=== PATIENT | male | born 1965 | race Caucasian/White ===

== ENCOUNTER 2016-09-12 07:08 | Day surgery (SDC) | payer OTHER ==
[2016-09-11 08:29] VITALS: BMI 38.4
--- NOTE | 2016-09-12 01:48 | P.GSHP ---
History of Present Illness H&P Date: 09/12/16 CHIEF COMPLAINT: Colon screen HISTORY OF PRESENT ILLNESS: The patient is a 51-year-old female who presents for colon screen. Lower endoscopy was offered for further evaluation and management. PAST MEDICAL HISTORY: Please see list. PAST SURGICAL HISTORY: Please see list. MEDICATIONS: Please see list. ALLERGIES: Please see list. SOCIAL HISTORY: No illicit drug use FAMILY HISTORY: No reports of Crohn disease or ulcerative colitis. REVIEW OF ORGAN SYSTEMS: CONSTITUTIONAL: No reports of fevers or chills. PHYSICAL EXAM: VITAL SIGNS: Stable GENERAL: Well-developed pleasant in no acute distress. HEENT: No scleral icterus. Extraocular movements grossly intact. Moist buccal mucosa. NECK: Supple without lymphadenopathy. CHEST: Unlabored respirations. Equal bilateral excursions. CARDIOVASCULAR: Regular rate and rhythm. Distal 2+ pulses. ABDOMEN: Soft, nontender, nondistended. MUSCULOSKELETAL: No clubbing, cyanosis, or edema. ASSESSMENT: 1. Colon screen. PLAN: 1. Recommend proceeding with a lower endoscopy Past Medical History Past Medical History: Diabetes Mellitus, GERD/Reflux, Hyperlipidemia, Sleep Apnea/CPAP/BIPAP Additional Past Medical History / Comment(s): hx migraines, discoloration lower legs, History of Any Multi-Drug Resistant Organisms: None Reported Past Surgical History: Adenoidectomy, Appendectomy, Ear Surgery, Orthopedic Surgery Additional Past Surgical History / Comment(s): tubes in ears, plastic surgery on nose, chad knee arthroscopy, Past Anesthesia/Blood Transfusion Reactions: Postoperative Nausea & Vomiting ( PONV) Past Psychological History: No Psychological Hx Reported Smoking Status: Current every day smoker Past Alcohol Use History: Rare Additional Past Alcohol Use History / Comment(s): has smoked since age 10, quit cigarretes 2012-up to 2 PPD, now uses pipe- 5-6 x day Past Drug Use History: Marijuana - Past Family History Mother Family Medical History: Cancer Medications and Allergies Home Medications Medication Instructions Recorded Confirmed Type Glimepiride [Amaryl] 2 mg PO QAM 03/09/14 09/11/16 History HYDROcodone/APAP 10-325MG [[place] 1 each PO Q6H PRN 03/09/14 09/11/16 History 10] Ranitidine HCl [Zantac] 150 mg PO DAILY 03/09/14 09/11/16 History Simvastatin [Zocor] 40 mg PO HS 10/07/14 04/11/17 History metFORMIN HCL [Glucophage] 1,000 mg PO BID 03/09/14 09/11/16 History Melatonin 3 mg PO HS 09/11/16 09/11/16 History Allergies Allergy/AdvReac Type Severity Reaction Status Date / Time No Known Allergies Allergy Verified 09/11/16 08:19
[~2016-09-12 07:08] MED LIST: LACTATED RINGERS 1,000 ML IV SCH; LIDOCAINE 1% 20 ML VIAL (10MG/ML) FOR IV START INTRADERMA PRN
[2016-09-12] MEDS ORDERED: LACTATED RINGERS 1,000 ML IV ONE (07:18)
[2016-09-12 07:29] VITALS: RESP 18; TEMP 98
[2016-09-12 07:31] LABS: Glucose,Whole Blood 201 mg/dL (75-99)
[2016-09-12] MEDS ORDERED: LIDOCAINE 1% INJ 10MG/ML (20 ML MDV) ONE (07:37)
[2016-09-12] MEDS ORDERED: ONDANSETRON 4 MG/2 ML VIAL ONE (07:37)
[2016-09-12] MEDS ORDERED: PROPOFOL 10 MG/ML 20 ML VIAL IV ONE (07:37)
[2016-09-12 08:45] LABS: Glucose,Whole Blood 223 mg/dL (75-99)
[2016-09-12 08:47] VITALS: BP 122/67; PULSE 60
--- NOTE | 2016-09-12 08:53 | P.PCN ---
Date of Procedure: 09/12/16 Description of Procedure: PREOPERATIVE DIAGNOSIS: Colonoscopy screening. Personal history of colon polyps. POSTOPERATIVE DIAGNOSIS: Colonoscopy screening. Personal history of colon polyps. Multiple tubular adenomas throughout the colon. External hemorrhoids, grade 2. OPERATION: Colonoscopy to the ileocecal valve and appendiceal orifice. Colonoscopy with multiple snare biopsies. Colonoscopy with multiple cold forceps biopsies. SURGEON: Thelma Carson MD. ANESTHESIA: MAC. INDICATIONS: The patient is a 57-year-old female who presents for colonoscopy screening. Benefits and risks were described and informed consent was obtained. DESCRIPTION OF PROCEDURE: The patient had undergone Gatorade, MiraLAX and Dulcolax prep. He had been brought into the operating room and laid in the left lateral decubitus position. After adequate intravenous sedation, the rectum was examined with 2% lidocaine jelly. External hemorrhoids were encountered. The rectal tone was within normal limits. No lesions were palpated in the rectal vault. An Olympus colonoscope was advanced until the ileocecal valve and appendiceal orifice were clearly viewed. The prep was fair with visualization of the mucosal folds. The scope was removed with visualization of each mucosal fold. No scattered diverticulosis was encountered. Multiple colonic polyps were found and cold forcep biopsy or snare polypectomy. No evidence of focal colitis was found. Retroflexion of the scope demonstrated grade 1 internal hemorrhoids without active bleeding or inflammation. The colon was desufflated. The patient had tolerated the procedure well. Withdrawal time was over 6 minutes. FINDINGS: Internal hemorrhoids, grade 1 External hemorrhoids, grade 2. No arteriovenous malformations. Removal of 11 polyps from the proximal, mid transverse colon and descending colon: - Snare polypectomy 20 cm from the anal verge, 5 mm tubulovillous adenoma polyp. - Snare polypectomy 39 cm from the anal verge, 8 mm flat villous adenoma polyp. - Snare polypectomy 50 cm from the anal verge, 12 mm flat villous adenoma polyp. - Cold forceps biopsy at 30 cm from the anal verge, 4 mm polyp. - Cold forceps biopsy at 40 cm from the anal verge, 5 mm polyp. - Cold forceps biopsy at 45 cm from the anal verge, 4 mm polyp. - Cold forceps biopsy at 55 cm from the anal verge, 3 mm polyp. - Cold forceps biopsy at 60 cm from the anal verge, 4 mm polyp. - Cold forceps biopsy at 65 cm from the anal verge, 3 mm polyp. - Cold forceps biopsy at 75 cm from the anal verge, 4 mm polyp. - Cold forceps biopsy at mid transverse colon, 5 mm polyp. - Cold forceps biopsy at proximal transverse colon, 4 mm polyp. No focal colitis. RECOMMENDATIONS: Given severity of tubular adenomas, recommend repeat colonoscopy 1 year. Plan - Discharge Summary Discharge Medication List Glimepiride [Amaryl] 2 mg PO QAM 03/09/14 [History] HYDROcodone/APAP 10-325MG [[place] 10] 1 each PO Q6H PRN 03/09/14 [History] Ranitidine HCl [Zantac] 150 mg PO DAILY 03/09/14 [History] Simvastatin [Zocor] 40 mg PO HS 03/09/14 [History] metFORMIN HCL [Glucophage] 1,000 mg PO BID 03/09/14 [History] Melatonin 3 mg PO HS 09/11/16 [History] Follow up Appointment(s)/Referral(s): Thelma Carson MD [STAFF PHYSICIAN] - 10/02/16 Patient Instructions/Handouts: Colorectal Polyps (DC), Colonoscopy (DC), * Surgery [facility] - (Anesthesia) Endoscopy Discharge Instructions Discharge Disposition: HOME SELF-CARE
== END 2016-09-12 09:08 | disposition home or self-care (01) ==
LOC: ORWHC2ENDO 07:08
PROVIDERS: ATTEND Surgery Plastic and Reconstructive Surgery
DX: Z12.11 Encounter for screening for malignant neoplasm of colon (principal); Z86.010 Personal history of colon polyps; D12.3 Benign neoplasm of transverse colon; D12.6 Benign neoplasm of colon, unspecified; K64.0 First degree hemorrhoids; K64.1 Second degree hemorrhoids; E11.9 Type 2 diabetes mellitus without complications; K21.9 Gastro-esophageal reflux disease without esophagitis; E78.5 Hyperlipidemia, unspecified; G47.33 Obstructive sleep apnea (adult) (pediatric); G43.909 Migraine, unspecified, not intractable, without status migrainosus; E66.9 Obesity, unspecified; F17.290 Nicotine dependence, other tobacco product, uncomplicated; Z79.84 Long term (current) use of oral hypoglycemic drugs; Z79.891 Long term (current) use of opiate analgesic; Z79.899 Other long term (current) drug therapy
CPT/HCPCS: 88305; 45380; 45385; J2405; J2001; J2704

== ENCOUNTER 2018-01-08 07:01 | Day surgery (SDC) | payer OTHER ==
[2018-01-06 18:02] VITALS: BMI 35.9
[~2018-01-08 07:01] MED LIST changes: +MIDAZOLAM 2 MG/2 ML VIAL IV PRN
[2018-01-08 07:20] VITALS: TEMP 96.8
--- NOTE | 2018-01-08 07:32 | P.GSHP ---
History of Present Illness H&P Date: 01/08/18 CHIEF COMPLAINT: Colon screen HISTORY OF PRESENT ILLNESS: The patient is a 52-year-old male who presents for colon screen. Lower endoscopy was offered for further evaluation and management. PAST MEDICAL HISTORY: Please see list. PAST SURGICAL HISTORY: Please see list. MEDICATIONS: Please see list. ALLERGIES: Please see list. SOCIAL HISTORY: No illicit drug use FAMILY HISTORY: No reports of Crohn disease or ulcerative colitis. REVIEW OF ORGAN SYSTEMS: CONSTITUTIONAL: No reports of fevers or chills. PHYSICAL EXAM: VITAL SIGNS: Stable GENERAL: Well-developed pleasant in no acute distress. HEENT: No scleral icterus. Extraocular movements grossly intact. Moist buccal mucosa. NECK: Supple without lymphadenopathy. CHEST: Unlabored respirations. Equal bilateral excursions. CARDIOVASCULAR: Regular rate and rhythm. Distal 2+ pulses. ABDOMEN: Soft, nontender, nondistended. MUSCULOSKELETAL: No clubbing, cyanosis, or edema. ASSESSMENT: 1. Colon screen. PLAN: 1. Recommend proceeding with a lower endoscopy Past Medical History Past Medical History: Diabetes Mellitus, GERD/Reflux, Hyperlipidemia, Sleep Apnea/CPAP/BIPAP Additional Past Medical History / Comment(s): HX COLON POLYPS, hx migraines, discoloration lower legs, History of Any Multi-Drug Resistant Organisms: None Reported Past Surgical History: Adenoidectomy, Appendectomy, Ear Surgery, Orthopedic Surgery Additional Past Surgical History / Comment(s): tubes in ears, plastic surgery on nose, chad knee arthroscopy, Past Anesthesia/Blood Transfusion Reactions: Postoperative Nausea & Vomiting ( PONV) Smoking Status: Current every day smoker - Past Family History Mother Family Medical History: Cancer Medications and Allergies Home Medications Medication Instructions Recorded Confirmed Type Glimepiride [Amaryl] 2 mg PO QAM 03/09/14 01/08/18 History HYDROcodone/APAP 10-325MG [[place] 1 each PO Q6H PRN 03/09/14 01/08/18 History 10] Ranitidine HCl [Zantac] 150 mg PO DAILY 03/09/14 01/08/18 History Simvastatin [Zocor] 40 mg PO HS 03/09/14 01/08/18 History metFORMIN HCL [Glucophage] 1,000 mg PO BID 03/09/14 01/08/18 History Melatonin 3 mg PO HS 09/11/16 01/08/18 History Allergies Allergy/AdvReac Type Severity Reaction Status Date / Time No Known Allergies Allergy Verified 01/08/18 07:17 Surgical - Exam Vital Signs Temp Pulse Resp BP Pulse Ox 96.8 F L 65 18 125/65 94 L 01/08/18 07:19 01/08/18 07:19 01/08/18 07:19 01/08/18 07:19 01/08/18 07:19
[2018-01-08 07:38] LABS: Glucose,Whole Blood 130 mg/dL (75-99)
[2018-01-08] MEDS ORDERED: LIDOCAINE 1% INJ 10MG/ML (20 ML MDV) ONE (07:56)
[2018-01-08] MEDS ORDERED: PROPOFOL 10 MG/ML 20 ML VIAL IV ONE (07:56)
--- NOTE | 2018-01-08 08:14 | P.PCN ---
Date of Procedure: 01/08/18 Description of Procedure: PREOPERATIVE DIAGNOSIS: Personal history of high-risk colon polyps POSTOPERATIVE DIAGNOSIS: Personal history of high-risk colon polyps OPERATION: Colonoscopy to the ileocecal valve and appendiceal orifice. SURGEON: Thelma Carson MD. ANESTHESIA: MAC. INDICATIONS: The patient is a 52-year-old male who presents for colonoscopy screening. Last colonoscopy was 2 years ago. Benefits and risks were described and informed consent was obtained. DESCRIPTION OF PROCEDURE: The patient had undergone Gatorade, MiraLAX and Dulcolax prep. He had been brought into the operating room and laid in the left lateral decubitus position. After adequate intravenous sedation, the rectum was examined with 2% lidocaine jelly. No external hemorrhoids were encountered. The rectal tone was within normal limits. No lesions were palpated in the rectal vault. An Olympus colonoscope was advanced until the ileocecal valve and appendiceal orifice were clearly viewed. The prep was excellent with clear visualization of the mucosal folds. The scope was removed with visualization of each mucosal fold. Scattered diverticulosis was encountered. No large colonic polyps were found. No evidence of focal colitis was found. Retroflexion of the scope demonstrated no internal hemorrhoids without active bleeding or inflammation. The colon was desufflated. The patient had tolerated the procedure well. Withdrawal time was over 6 minutes. FINDINGS: No internal hemorrhoids No external prolapsed hemorrhoids. No arteriovenous malformations. No large adenomatous polyps. No scattered sigmoid diverticulosis No focal colitis. RECOMMENDATIONS: Lower endoscopy in 3 years, 2020 Plan - Discharge Summary New Discharge Prescriptions: No Action Ranitidine HCl [Zantac] 150 mg PO DAILY HYDROcodone/APAP 10-325MG [[place] 10] 1 each PO Q6H PRN PRN Reason: Pain metFORMIN HCL [Glucophage] 1,000 mg PO BID Simvastatin [Zocor] 40 mg PO HS Glimepiride [Amaryl] 2 mg PO QAM Melatonin 3 mg PO HS Discharge Medication List Glimepiride [Amaryl] 2 mg PO QAM 03/09/14 [History] HYDROcodone/APAP 10-325MG [[place] 10] 1 each PO Q6H PRN 03/09/14 [History] Ranitidine HCl [Zantac] 150 mg PO DAILY 03/09/14 [History] Simvastatin [Zocor] 40 mg PO HS 03/09/14 [History] metFORMIN HCL [Glucophage] 1,000 mg PO BID 03/09/14 [History] Melatonin 3 mg PO HS 09/11/16 [History]
[2018-01-08 08:21] VITALS: RESP 16
[2018-01-08 08:50] VITALS: BP 113/67; PULSE 56
== END 2018-01-08 08:56 | disposition home or self-care (01) ==
LOC: ORWHC2ENDO 07:01
PROVIDERS: ATTEND Surgery Plastic and Reconstructive Surgery
DX: Z12.11 Encounter for screening for malignant neoplasm of colon (principal); E11.9 Type 2 diabetes mellitus without complications; K21.9 Gastro-esophageal reflux disease without esophagitis; I10 Essential (primary) hypertension; G47.30 Sleep apnea, unspecified; E78.5 Hyperlipidemia, unspecified; F17.200 Nicotine dependence, unspecified, uncomplicated; Z86.010 Personal history of colon polyps; Z79.84 Long term (current) use of oral hypoglycemic drugs; Z79.899 Other long term (current) drug therapy; Z99.89 Dependence on other enabling machines and devices; Z80.9 Family history of malignant neoplasm, unspecified
CPT/HCPCS: J2001; J2704; G0105

== ENCOUNTER 2018-01-18 16:12 | Emergency (ER) | payer OTHER ==
[2018-01-18] MEDS ORDERED: MECLIZINE 12.5 MG TAB PO STA (17:26)
--- NOTE | 2018-01-18 17:32 | ED ---
General Adult HPI - General Chief complaint: Upper Respiratory Infection Stated complaint: COLD SYMPTOMS Time Seen by Provider: 01/18/18 17:02 Source: patient, family, RN notes reviewed Mode of arrival: ambulatory Limitations: no limitations - History of Present Illness Initial comments: Chief complaint and history of present illness is a 52-year-old male here with complaint of dizziness associated with head movement. Also productive cough for 2 weeks. Patient reports 2 weeks ago he also had right ear fullness and sinus congestion and pressure. Denies any fever. No stiff neck or significant headache. - Related Data Home Medications Medication Instructions Recorded Confirmed Glimepiride [Amaryl] 2 mg PO QAM 03/09/14 01/18/18 Ranitidine HCl [Zantac] 150 mg PO DAILY 03/09/14 01/18/18 Simvastatin [Zocor] 40 mg PO HS 03/09/14 01/18/18 metFORMIN HCL [Glucophage] 1,000 mg PO BID 03/09/14 01/18/18 Melatonin 3 mg PO HS 09/11/16 01/18/18 Previous Rx's Medication Instructions Recorded Azithromycin [Zithromax Z-pack] 250 mg PO DIRECTED #6 tab 01/18/18 Meclizine [Antivert] 25 mg PO TID #30 tab 01/18/18 Allergies Allergy/AdvReac Type Severity Reaction Status Date / Time No Known Allergies Allergy Verified 01/18/18 16:13 Review of Systems ROS Statement: Those systems with pertinent positive or pertinent negative responses have been documented in the HPI. Review of systems. No headache no visual acuity changes he does feel dizzy when he turns his head quickly left or right. 2 weeks ago he had pressure in his right ear. For 2 weeks he's had significant cough which is productive. No stiff neck. No chest pain. No GI/ problems. No neuro deficits. All systems were reviewed. Past medical problems significant for non-insulin- dependent diabetes mellitus. The patient reports his sugar normally the 200 range today there were 116. He states he drinks large amounts of Mountain Dew. And denies vomiting any good diabetic diet. We did discuss what will potentially happen with elevated blood sugars over prolonged period of time. The patient also has a history of GERD, hyperlipidemia, sleep apnea for which he uses CPAP. The patient had a colon polyp removed. Surgeries include adenoidectomy, appendectomy, ear tubes as a child and a left ACL repair. Family history cancers include skin and throat. The patient denies any ALLERGIES she does smoke one half pack per day strongly encouraged stop entirely. Denies alcohol use. ROS Other: All systems not noted in ROS Statement are negative. Past Medical History Past Medical History: Diabetes Mellitus, GERD/Reflux, Hyperlipidemia, Sleep Apnea/CPAP/BIPAP Additional Past Medical History / Comment(s): HX COLON POLYPS, hx migraines, discoloration lower legs, History of Any Multi-Drug Resistant Organisms: None Reported Past Surgical History: Adenoidectomy, Appendectomy, Ear Surgery, Orthopedic Surgery Additional Past Surgical History / Comment(s): tubes in ears, plastic surgery on nose, chad knee arthroscopy, Past Anesthesia/Blood Transfusion Reactions: Postoperative Nausea & Vomiting ( PONV) Past Psychological History: Depression, PTSD Smoking Status: Current every day smoker Past Alcohol Use History: None Reported Past Drug Use History: Marijuana - Past Family History Mother Family Medical History: Cancer General Exam - General Exam Comments Initial Comments: General: The patient is awake and alert, dizziness with head movement. Productive cough. Vital signs shows temperature 98.2 pulse 82 respiratory rate 20 pulse ox 96% room air blood pressure 155/77. Eye: Pupils are equal, round and reactive to light, extra-ocular movements are intact ; there is normal conjunctiva bilaterally. No signs of icterus. Ears, nose, mouth and throat: There are moist mucous membranes and no oral lesions. Right ear red tympanic membrane essentially normal. Left ear normal. Neck: The neck is supple, there is no tenderness. Cardiovascular: There is a regular rate and rhythm. No murmur, rub or gallop is appreciated. Respiratory: Lungs are clear to auscultation, harsh breath sounds, productive cough, no wheezing or rales. Gastrointestinal: Abdomen nontender Back: There is no tenderness to palpation in the midline. Musculoskeletal: Normal ROM, no tenderness, There is no pedal edema. There is no calf tenderness or swelling. Neurological: No neuro deficits. No focal or lateralizing findings other than dizziness with head movement. We did discuss vertigo. The patient was given meclizine in emergency room. Skin: Skin is warm and dry and no rashes or lesions are noted. Psychiatric: Cooperative, Limitations: no limitations Course Vital Signs 08/18/18 08/18/18 08/18/18 16:13 16:38 17:49 Temperature 98.2 F Pulse Rate 82 70 Respiratory 18 20 20 Rate Blood Pressure 155/77 140/68 O2 Sat by Pulse 96 96 Oximetry Medical Decision Making - Medical Decision Making Medical decision making; this is a 52-year-old male here with a complaint of productive cough, dizziness with head movement and right ear pain. Chest x-ray was done reviewed radiologist; the findings include there is no focal airspace opacity, pleural effusion, or pneumothorax seen. Cardiac silhouette size is within normal limits. The osseous structures are intact. Impression no suspicious acute infiltrate. As read by Dr. garza. The patient be placed on a azithromycin to cover both respiratory and bronchitis. He'll sleep Meclizine 1 Tablet 3 Times A Day for One Week. To Change Positions Slowly Stay Hydrated. Use Nasal [place] As Needed. Follow-Up Family Physician and Return Emergency Room As Needed. Disposition Clinical Impression: Bronchitis, Vertigo Disposition: HOME SELF-CARE Condition: Fair Instructions: Vertigo (ED), Acute Bronchitis (ED) Additional Instructions: Increase fluids. Use nasal spray as needed. Take a Zithromax until completed. Take meclizine for dizziness. Changes slowly. Rehydrate. Follow-up with family physician or return emergency room as needed. Stop smoking. Dr. yeager about better control and your diabetic diet Prescriptions: Azithromycin [Zithromax Z-pack] 250 mg PO DIRECTED #6 tab Meclizine [Antivert] 25 mg PO TID #30 tab Is patient prescribed a controlled substance at d/c from ED?: No Referrals: Gabriele Harden MD [Primary Care Provider] - 1-2 days Time of Disposition: 18:26
--- NOTE | 2018-01-18 18:17 | XR ---
EXAMINATION TYPE: XR chest 2V DATE OF EXAM: 01/18/2018 COMPARISON: NONE HISTORY: Productive cough for 3 weeks. TECHNIQUE: Frontal and lateral views of the chest are obtained. FINDINGS: There is no focal air space opacity, pleural effusion, or pneumothorax seen. The cardiac silhouette size is within normal limits. The osseous structures are intact. IMPRESSION: No suspicious acute infiltrate.
[2018-01-18 18:38] VITALS: BP 125/62; PULSE 65; RESP 18; TEMP 98.3
== END 2018-01-18 18:53 | disposition home or self-care (01) ==
LOC: EC 16:12
DX: J40 Bronchitis, not specified as acute or chronic (principal); R42 Dizziness and giddiness; E11.9 Type 2 diabetes mellitus without complications; K21.9 Gastro-esophageal reflux disease without esophagitis; E78.5 Hyperlipidemia, unspecified; G47.30 Sleep apnea, unspecified; Z99.89 Dependence on other enabling machines and devices; G43.909 Migraine, unspecified, not intractable, without status migrainosus; F17.200 Nicotine dependence, unspecified, uncomplicated; Z79.84 Long term (current) use of oral hypoglycemic drugs; Z79.899 Other long term (current) drug therapy; Z96.22 Myringotomy tube(s) status
CPT/HCPCS: 71046; 99283

== ENCOUNTER → 2023-06-26 | Outpatient (CLI) | payer OTHER ==
--- NOTE | 2023-06-26 12:05 | CA ---
Exercise Stress Test Report Name: Leodan Rivero Exam Date: 06/26/2023 11:01 Exam Location: [facility] Stress Ht (in): 69 Wt (lb): 275 BSA: 2.37 Ordering Phys: Gabriele Harden MD Referring Phys: Gabriele Harden MD Technologist: Xavi Braga Age: 58 Gender: M : 1965 Procedure CPT: Indications: R07.9 CHEST PAIN ICD-10 Codes: Patient History: Medications: metformin Meds past 24 hrs: Pretest Chest Pain: STRESS TEST [place] Protocol Exercise Duration (min:sec): 05:[address] Depressions (mm): Angina Score: Bonilla Score: Resting HR (bpm): 60 Peak HR (bpm): 133 Resting BP (mmHg): 113 / 59 Peak BP (mmHg): 219 / 62 MPHR: 160 Target HR: 136 % MPHR: 83 METS: 7.1 Total Dose: Peak Dose: Atropine: Double Product: 46494 BP Response: Stress Termination: Fatigue Stress Symptoms: leg pain Stress Summary: ECG ANALYSIS Resting ECG: Stress ECG: CONCLUSIONS Excellent exercise tolerance Mild EKG changes noted on recovery Dr. Nato Trejo MD (Electronically Signed) Final Date: 26 June 2023 12:04
== END | disposition home or self-care (01) ==
LOC: RADNMMAIN 10:39
PROVIDERS: ATTEND Family Medicine
DX: R07.9 Chest pain, unspecified (principal)
CPT/HCPCS: 93017